=== PATIENT | female | born 1960 | race Caucasian/White ===

== ENCOUNTER 2017-04-11 13:10 | Emergency (ER) | payer MEDICAID ==
--- NOTE | 2017-04-11 15:35 | CR ---
INDICATION: Chest pain. CHEST: PA and lateral views of the chest 04/11/2017 were compared with 2012, and revealed slight tortuosity of the aorta at the arch. Heart, mediastinum, and bony thorax were otherwise unremarkable. An active infiltrate or effusion was not identified. Overlying snap noted. IMPRESSION: 1. No acute process. 2. Mild ASD aorta. MTDD
--- NOTE | 2017-04-12 09:44 | ER ---
DATE SEEN: 04/11/2017 HISTORY OF PRESENT ILLNESS: This pleasant 56-year-old woman had sudden severe onset of epigastric pain. She presents to the clinic at 1205 hours and was transferred here to the hospital because of severe pain. 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 She is noted to have 168/99 blood pressure in the clinic. No chest pain, but she had some right shoulder discomfort. She has baseline bilateral shoulder discomfort, more notable on the right and some right anterolateral chest discomfort today. No associated diaphoresis, lightheadedness, dizziness, palpitations, cough, shortness of breath, back pain, arm pain, or jaw pain. The patient is overweight of approximately 92 kilos (BMI 35.2 kg/m2), and she otherwise has no history of hypertension, asthma, heart disease, heart attack, or strokes. Other surgeries; she has had cholecystectomies, cyst on her skin removed, and sphincterotomy of Oddi. REVIEW OF SYSTEMS: CONSTITUTIONAL: Otherwise negative except for noted above. She had vomiting once today, but mostly was retching and not much food came up. CHEST: Denies shortness of breath, chest pain, or irregular heartbeat. GI: Denies diarrhea, constipation, blood in the stool, or black or tarry stool. : Denies frequency, urgency, or dysuria. MUSCULOSKELETAL: Denies joint pain, aches. NEURO: Negative. DERM: Negative except for the cyst excised. PHYSICAL EXAMINATION: VITAL SIGNS: Blood pressure 168/99, heart rate 77, respirations 16, oxygen saturation 100%. GENERAL: Alert woman, in no acute distress. She is overweight. Pleasant, is attended by her . They both have a very supportive relationship. HEENT: PERRLA intact. Pharynx without abnormality. No erythema. TMs negative. Eyegrounds normal. NECK: No cervical adenopathy. No thyromegaly. No masses in the neck. Neck is supple. LUNGS: Clear without rales, rhonchi, or wheezes. HEART: S1, S2. No irregular rate and rhythm. No tachycardia. ABDOMEN: Soft, minimal discomfort in the midepigastrium. No other pain. No umbilical pain. No periumbilical pain. She noted the pain went straight through to her back, but did not go circumferentially around the left or right axilla regions to her back from the anterior abdomen. PELVIC: Not performed. RECTAL: Not performed. EXTREMITIES: Lower extremities without edema. Knees, free movement easily. Deep tendon reflexes normal. LABORATORY FINDINGS: Remarkably normal with white count 14,900 - slightly elevated. PMNs 68, lymphocytes 21, monos 5, 2% eosinophils. Complete metabolic panel is normal. See chart. Alkaline phosphatase is slightly elevated at 122, normal is 56-112, so it is slightly elevated, not significant. Her troponin is normal. EKG is normal with normal sinus rhythm. ASSESSMENT: 1. The patient has mild right shoulder discomfort. She thought it is from "getting up from off her butt" after she sat on the floor and could not get up very easily, and strained her shoulder on getting up. 2. Chest wall pain. She relates probably this is secondary. 3. No sign of myocardial ischemia. EKG and troponin are negative. Chest x- ray is normal. No acute process. Mild atherosclerotic disease of the aorta. 4. Abdominal discomfort, brief abdominal pain, possibly result of mass action, which is as brief as the duration of her severe episodes of spasm that has resolved. 5. Status post sphincterotomy of the Oddi, old with stable history. 6. Elevated alkaline phosphatase, etiology undetermined, possibly related to sphincter of Oddi, but no other liver enzymes are elevated. 7. Obesity. 8. No evidence for pancreatitis. 9. Status post cholecystectomy, old. The patient is to follow up with doctor next week. Advance diet as tolerated. Eat three meals a day. She apparently had not eaten since last night, so perhaps there maybe some bowel spasm maintenance secondary to this activity. Also drink 2 quarts of water a day. /[id number] TIA/HORACE [id number]
== END 2017-04-11 15:52 | disposition home or self-care (01) ==
LOC: FB.ED 13:10
DX: M25.511 Pain in right shoulder (principal); R07.89 Other chest pain; R10.13 Epigastric pain; R74.8 Abnormal levels of other serum enzymes; E66.9 Obesity, unspecified; Z90.81 Acquired absence of spleen; Z90.49 Acquired absence of other specified parts of digestive tract
CPT/HCPCS: 36415; 71020; 80053; 82150; 84484; 85025; 93005; 99284